=== PATIENT | male | born 1990 | race African-American/Black ===

== ENCOUNTER 2018-09-12 08:09 | Emergency (ER) | payer OTHER, MEDICAID ==
[~2018-09-12] VITALS: Ht 177.8 cm; Wt 90.0 kg
[~2018-09-12 08:09] MED LIST: BACL-141; CIPR-264; DIVA-18; EXTAVIA; SULF-165; TEMA7.5C6
[2018-09-12] MEDS ORDERED: KETOROLAC 60MG/2ML VIAL IM ONE (09:00)
[2018-09-12] MEDS ORDERED: DIAZEPAM 5 MG/ML 2ML CPJ IV ONE (09:00)
[2018-09-12] MEDS ORDERED: DIAZEPAM 5 MG TABLET PO ONE (11:00)
[2018-09-12 14:13] VITALS: BP 135/57
== END 2018-09-12 14:20 | disposition home or self-care (01) ==
LOC: ER 08:09
DX: G35 Multiple sclerosis (principal); Z99.3 Dependence on wheelchair; Z90.49 Acquired absence of other specified parts of digestive tract
CPT/HCPCS: 96372; 99283; J1885

== ENCOUNTER 2018-11-12 21:16 | Emergency (ER) | payer OTHER, MEDICAID ==
[~2018-11-12] VITALS: Ht 177.8 cm; Wt 82.0 kg
[2018-11-12] MEDS ORDERED: MORPHINE SULFATE 4 MG/ML CPJ (NOT FOR IM USE) IV STA (22:13)
[2018-11-12] MEDS ORDERED: METHYLPREDNISOLONE SOD SUCC 125 MG/2 ML VIAL IV STA (22:13)
[2018-11-12] MEDS ORDERED: ONDANSETRON HCL 4MG/2ML INJ IV STA (22:13)
[2018-11-12] MEDS ORDERED: SODIUM CHLORIDE 0.9% 1,000 ML IV ONE (22:13)
[2018-11-12 23:09] LABS: BASOPHILS % 0.7 % (0.0-2.0); HEMATOCRIT. 39.3 % (42.0-52.0); HEMOGLOBIN. 13.5 g/dL (14.0-18.0); LYMPHOCYTES % 28.7 % (20.0-50.0); MEAN CORPUSCULAR HEMOGLOBIN 31.4 pg (28.0-32.0); MEAN CORPUSCULAR VOLUME 91.2 fL (80.0-94.0); MEAN PLATELET VOLUME 8.5 fl (7.4-10.4); MONOCYTES % 8.4 % (2.0-8.0); NEUTROPHILS % 59.2 % (40.0-76.0); PLATELET 249 x1000/uL (130-400); RED BLOOD CELL COUNT 4.31 mill/uL (4.7-6.1); RED CELL DISTRIBUTION WIDTH 12.8 % (11.6-14.6)
[2018-11-12 23:14] LABS: CHLORIDE 113 mEq/L (98-107)
[2018-11-12 23:21] LABS: ETHANOL BLOOD < 10 mg/dL
[2018-11-12 23:46] LABS: *AMPHETAMINES SCREEN URINE NEGATIVE (NEGATIVE); *BARBITURATES SCREEN URINE NEGATIVE (NEGATIVE); *BENZODIAZEPINES SCREEN URINE NEGATIVE (NEGATIVE); *COCAINE SCREEN URINE NEGATIVE (NEGATIVE)
[2018-11-12 23:47] LABS: CANNABINOID URINE SCREEN NEGATIVE (NEGATIVE); METHADONE URINE SCREEN NEGATIVE (NEGATIVE); OPIATES URINE SCREEN PRESUMTIVE POSITIVE (NEGATIVE); PHENCYCLIDINE URINE SCREEN NEGATIVE (NEGATIVE)
[2018-11-13 02:44] VITALS: BP 116/60
== END 2018-11-13 02:50 | disposition short-term general hospital (02) ==
LOC: ER 21:35
DX: G35 Multiple sclerosis (principal); R53.1 Weakness; M54.9 Dorsalgia, unspecified; M79.606 Pain in leg, unspecified; F31.9 Bipolar disorder, unspecified; Z99.3 Dependence on wheelchair
CPT/HCPCS: 36415; 80053; 80305; 80320; 83880; 84484; 85025; 93005; 96374; 96375; 99285; J2270; J2405; J2930; J7030; G0480

== ENCOUNTER 2018-12-13 14:04 | Emergency (ER) | payer OTHER, MEDICAID ==
[~2018-12-13] VITALS: Ht 175.3 cm; Wt 110.0 kg
[2018-12-13] MEDS ORDERED: ACETAMINOPHEN 325MG TABLET PO ONE (15:45)
[2018-12-13] MEDS ORDERED: KETOROLAC 60MG/2ML VIAL IM ONE (15:45)
[2018-12-13] MEDS ORDERED: DEXAMETHASONE 2MG TABLET PO ONE (15:45)
[2018-12-13 18:16] VITALS: BP 140/65
== END 2018-12-13 19:11 | disposition home or self-care (01) ==
LOC: ER 14:04
DX: M54.5 Low back pain (principal); G89.29 Other chronic pain; G35 Multiple sclerosis; G83.89 Other specified paralytic syndromes; F31.9 Bipolar disorder, unspecified; Z99.3 Dependence on wheelchair
CPT/HCPCS: 96372; 99283; J1885; J8540

== ENCOUNTER 2018-12-15 14:54 | Emergency (ER) | payer OTHER, MEDICAID ==
[~2018-12-15] VITALS: Ht 177.8 cm; Wt 90.0 kg
[2018-12-15] MEDS: HYDROCODONE/ACETAMINOPHEN 5/325MG TABLET PO ONE ×2 (16:00→16:41)
[2018-12-15 17:30] VITALS: BP 118/72
== END 2018-12-15 18:57 | disposition home or self-care (01) ==
LOC: ER 14:54
DX: M54.5 Low back pain (principal); F31.9 Bipolar disorder, unspecified; Z79.899 Other long term (current) drug therapy
CPT/HCPCS: 72148; 99284

== ENCOUNTER 2018-12-17 02:06 | Emergency (ER) | payer OTHER, MEDICAID ==
[~2018-12-17] VITALS: Ht 182.9 cm; Wt 104.0 kg
[2018-12-17] MEDS ORDERED: KETOROLAC 60MG/2ML VIAL IM NR (03:35)
[2018-12-17] MEDS ORDERED: HYDROCODONE/ACETAMINOPHEN 5/325MG TABLET PO NR (03:35)
[2018-12-17 05:09] LABS: CLARITY URINE CLEAR (CLEAR); COLOR URINE YELLOW (YELLOW); KETONES URINE TRACE (NEGATIVE); LEUKOCYTE ESTERASE URINE NEGATIVE (NEGATIVE); NITRITE URINE NEGATIVE (NEGATIVE); OCCULT BLOOD URINE NEGATIVE (NEGATIVE); PROTEIN URINE NEGATIVE (NEGATIVE)
[2018-12-17 08:50] VITALS: BP 115/77
== END 2018-12-17 09:10 | disposition home or self-care (01) ==
LOC: ER 02:06
DX: M54.5 Low back pain (principal); G89.29 Other chronic pain; G35 Multiple sclerosis; F31.9 Bipolar disorder, unspecified; Z90.49 Acquired absence of other specified parts of digestive tract
CPT/HCPCS: 81003; 96372; 99283; J1885

== ENCOUNTER 2019-01-10 09:39 | Emergency (ER) | payer OTHER, MEDICAID ==
[~2019-01-10] VITALS: Ht 182.9 cm; Wt 140.0 kg
[2019-01-10] MEDS ORDERED: MORPHINE SULFATE 4 MG/ML CPJ (NOT FOR IM USE) IV STA (09:55)
[2019-01-10 11:36] LABS: BASOPHILS % 0.6 % (0.0-2.0); EOSINOPHILS % 2.6 % (0.0-5.0); HEMATOCRIT. 38.9 % (42.0-52.0); HEMOGLOBIN. 12.9 g/dL (14.0-18.0); LYMPHOCYTES % 18.3 % (20.0-50.0); MEAN CORPUSCULAR HEMOGLOBIN 30.7 pg (28.0-32.0); MEAN CORPUSCULAR VOLUME 92.2 fL (80.0-94.0); MEAN PLATELET VOLUME 9.1 fl (7.4-10.4); NEUTROPHILS % 65.5 % (40.0-76.0); PLATELET 203 x1000/uL (130-400); RED BLOOD CELL COUNT 4.22 mill/uL (4.7-6.1); RED CELL DISTRIBUTION WIDTH 13.4 % (11.6-14.6)
[2019-01-10 11:46] LABS: CHLORIDE 110 mEq/L (98-107)
[2019-01-10] MEDS ORDERED: MORPHINE SULFATE 4 MG/ML CPJ (NOT FOR IM USE) IV ONE (13:45)
[2019-01-10 16:15] VITALS: BP 113/59
== END 2019-01-10 16:30 | disposition short-term general hospital (02) ==
LOC: ER 09:39
DX: M54.5 Low back pain (principal); G35 Multiple sclerosis; G82.20 Paraplegia, unspecified; F31.9 Bipolar disorder, unspecified
CPT/HCPCS: 36415; 71045; 80053; 82962; 85025; 93005; 96374; 96376; 99285; J2270

== ENCOUNTER 2019-01-15 15:24 | Emergency (ER) | payer OTHER, MEDICAID ==
[~2019-01-15] VITALS: Ht 177.8 cm; Wt 104.0 kg
[2019-01-15] MEDS ORDERED: SODIUM CHLORIDE 0.9% 1,000 ML IV ONE (16:36)
[2019-01-15] MEDS ORDERED: MORPHINE SULFATE 4 MG/ML CPJ (NOT FOR IM USE) IV STA (16:36)
[2019-01-15] MEDS ORDERED: ONDANSETRON HCL 4MG/2ML INJ IV STA (16:36)
[2019-01-15] MEDS ORDERED: METHYLPREDNISOLONE SOD SUCC 125 MG/2 ML VIAL IV ONE (16:45)
[2019-01-15 16:50] LABS: CLARITY URINE CLEAR (CLEAR); COLOR URINE YELLOW (YELLOW); KETONES URINE TRACE (NEGATIVE); LEUKOCYTE ESTERASE URINE NEGATIVE (NEGATIVE); NITRITE URINE NEGATIVE (NEGATIVE); OCCULT BLOOD URINE NEGATIVE (NEGATIVE); PH URINE 6.5 (4.5-8.0); PROTEIN URINE NEGATIVE (NEGATIVE); SPECIFIC GRAVITY URINE 1.018 (1.005-1.030)
[2019-01-15 17:04] LABS: BASOPHILS % 0.8 % (0.0-2.0); EOSINOPHILS % 4.3 % (0.0-5.0); HEMATOCRIT. 37.6 % (42.0-52.0); HEMOGLOBIN. 12.6 g/dL (14.0-18.0); LYMPHOCYTES % 20.4 % (20.0-50.0); MEAN CORPUSCULAR HEMOGLOBIN 30.6 pg (28.0-32.0); MEAN CORPUSCULAR VOLUME 90.9 fL (80.0-94.0); MEAN PLATELET VOLUME 8.1 fl (7.4-10.4); MONOCYTES % 10.8 % (2.0-8.0); NEUTROPHILS % 63.7 % (40.0-76.0); PLATELET 287 x1000/uL (130-400); RED BLOOD CELL COUNT 4.13 mill/uL (4.7-6.1); RED CELL DISTRIBUTION WIDTH 13.3 % (11.6-14.6)
[2019-01-15 17:11] LABS: PROTHROMBIN TIME 10.7 sec (9.6-11.0)
[2019-01-15 17:12] LABS: CHLORIDE 109 mEq/L (98-107)
[2019-01-15 18:44] VITALS: BP 144/75
== END 2019-01-15 19:13 | disposition short-term general hospital (02) ==
LOC: ER 15:24 → CANBEDREQ 22:35
DX: G35 Multiple sclerosis (principal); M54.5 Low back pain; F31.9 Bipolar disorder, unspecified; Z90.411 Acquired partial absence of pancreas; Z87.821 Personal history of retained foreign body fully removed; Z87.19 Personal history of other diseases of the digestive system; Z79.899 Other long term (current) drug therapy
CPT/HCPCS: 36415; 80053; 81003; 85025; 85610; 96374; 96375; 99285; J2270; J2405; J2930; J7030

== ENCOUNTER 2019-01-21 16:07 | Emergency (ER) | payer OTHER, MEDICAID ==
[~2019-01-21] VITALS: Ht 177.8 cm; Wt 113.0 kg
[2019-01-21] MEDS ORDERED: FENTANYL CITRATE/PF 50MCG/ML 2ML VIAL IV ONE (17:00)
[2019-01-21 20:00] VITALS: BP 119/70
== END 2019-01-21 20:00 | disposition home or self-care (01) ==
LOC: ER 16:07
DX: G89.29 Other chronic pain (principal); M54.5 Low back pain; G35 Multiple sclerosis; F31.9 Bipolar disorder, unspecified; Z99.3 Dependence on wheelchair; Z87.19 Personal history of other diseases of the digestive system
CPT/HCPCS: 96374; 99283; J3010

== ENCOUNTER 2019-01-22 16:35 | Emergency (ER) | payer OTHER, MEDICAID ==
[~2019-01-22] VITALS: Ht 177.8 cm; Wt 113.0 kg
[2019-01-22] MEDS ORDERED: MORPHINE SULFATE 10 MG/ML CPJ IM ONE (19:15)
[2019-01-22] MEDS ORDERED: KETOROLAC 60MG/2ML VIAL IM ONE (19:15)
[2019-01-22] MEDS ORDERED: METHOCARBAMOL 750MG TABLET PO STA (19:53)
[2019-01-22] MEDS ORDERED: MORPHINE SULFATE 4 MG/ML CPJ (NOT FOR IM USE) IV ONE (20:00)
[2019-01-22] MEDS ORDERED: KETOROLAC 30MG/ML VIAL IV ONE (20:00)
[2019-01-22 20:23] LABS: BASOPHILS % 0.7 % (0.0-2.0); EOSINOPHILS % 3.4 % (0.0-5.0); HEMATOCRIT. 40.6 % (42.0-52.0); HEMOGLOBIN. 13.6 g/dL (14.0-18.0); LYMPHOCYTES % 24.8 % (20.0-50.0); MEAN CORPUSCULAR HEMOGLOBIN 30.6 pg (28.0-32.0); MEAN CORPUSCULAR VOLUME 91.4 fL (80.0-94.0); MEAN PLATELET VOLUME 8.1 fl (7.4-10.4); MONOCYTES % 11.5 % (2.0-8.0); NEUTROPHILS % 59.6 % (40.0-76.0); PLATELET 361 x1000/uL (130-400); RED BLOOD CELL COUNT 4.44 mill/uL (4.7-6.1); RED CELL DISTRIBUTION WIDTH 13.5 % (11.6-14.6)
[2019-01-22 20:24] LABS: CHLORIDE 110 mEq/L (98-107)
[2019-01-22 23:11] VITALS: BP 137/68
== END 2019-01-22 23:11 | disposition short-term general hospital (02) ==
LOC: ER 16:35
DX: G35 Multiple sclerosis (principal); M62.831 Muscle spasm of calf; F31.9 Bipolar disorder, unspecified; Z87.19 Personal history of other diseases of the digestive system
CPT/HCPCS: 36415; 71045; 80053; 83880; 84484; 85025; 93005; 96374; 96375; 99285; J1885; J2270

== ENCOUNTER 2019-01-28 08:33 | Emergency (ER) | payer OTHER, MEDICAID ==
[~2019-01-28] VITALS: Ht 182.9 cm; Wt 113.0 kg
[2019-01-28] MEDS ORDERED: MORPHINE SULFATE 4 MG/ML CPJ (NOT FOR IM USE) IV STA (08:47)
[2019-01-28 09:08] LABS: BASOPHILS % 1.1 % (0.0-2.0); HEMATOCRIT. 41.5 % (42.0-52.0); HEMOGLOBIN. 13.9 g/dL (14.0-18.0); LYMPHOCYTES % 23.9 % (20.0-50.0); MEAN CORPUSCULAR HEMOGLOBIN 30.4 pg (28.0-32.0); MEAN CORPUSCULAR VOLUME 90.9 fL (80.0-94.0); MEAN PLATELET VOLUME 8.6 fl (7.4-10.4); MONOCYTES % 11.5 % (2.0-8.0); NEUTROPHILS % 59.5 % (40.0-76.0); PLATELET 237 x1000/uL (130-400); RED BLOOD CELL COUNT 4.57 mill/uL (4.7-6.1); RED CELL DISTRIBUTION WIDTH 13.3 % (11.6-14.6)
[2019-01-28 09:21] LABS: CHLORIDE 107 mEq/L (98-107)
[2019-01-28] MEDS ORDERED: MORPHINE SULFATE 4 MG/ML CPJ (NOT FOR IM USE) IV ONE ×2 (10:00→11:45)
[2019-01-28 12:42] VITALS: BP 128/59
== END 2019-01-28 13:08 | disposition short-term general hospital (02) ==
LOC: ER 08:33 → ENRESERV 10:02 → CANRESERV 10:02 → CANBEDREQ 10:42 → ER 13:08
DX: G35 Multiple sclerosis (principal); F31.9 Bipolar disorder, unspecified; Z87.19 Personal history of other diseases of the digestive system; Z99.3 Dependence on wheelchair
CPT/HCPCS: 36415; 71045; 80053; 85025; 93005; 96374; 96376; 99285; J2270

== ENCOUNTER 2019-02-02 07:11 | Emergency (ER) | payer OTHER, MEDICAID ==
[~2019-02-02] VITALS: Ht 182.9 cm; Wt 100.0 kg
[2019-02-02] MEDS ORDERED: DIAZEPAM 5 MG TABLET PO ONE (09:00)
[2019-02-02 09:07] LABS: BASOPHILS % 0.6 % (0.0-2.0); EOSINOPHILS % 5.5 % (0.0-5.0); HEMOGLOBIN. 12.8 g/dL (14.0-18.0); LYMPHOCYTES % 20.9 % (20.0-50.0); MEAN CORPUSCULAR HEMOGLOBIN 29.8 pg (28.0-32.0); MEAN CORPUSCULAR VOLUME 90.9 fL (80.0-94.0); MEAN PLATELET VOLUME 9.1 fl (7.4-10.4); MONOCYTES % 10.6 % (2.0-8.0); NEUTROPHILS % 62.4 % (40.0-76.0); PLATELET 230 x1000/uL (130-400); RED BLOOD CELL COUNT 4.29 mill/uL (4.7-6.1); RED CELL DISTRIBUTION WIDTH 13.2 % (11.6-14.6)
[2019-02-02 09:08] LABS: CHLORIDE 113 mEq/L (98-107)
[2019-02-02 09:45] LABS: INR 1.1; PROTHROMBIN TIME 11.4 sec (9.6-11.0)
[2019-02-02 12:45] VITALS: BP 115/71
== END 2019-02-02 12:50 | disposition home or self-care (01) ==
LOC: ER 07:11
DX: G35 Multiple sclerosis (principal); F31.9 Bipolar disorder, unspecified; Z99.3 Dependence on wheelchair
CPT/HCPCS: 36415; 99283

== ENCOUNTER 2019-02-14 11:40 | Emergency (ER) | payer OTHER, MEDICAID ==
[~2019-02-14] VITALS: Ht 177.8 cm; Wt 104.0 kg
[2019-02-14] MEDS ORDERED: METHYLPREDNISOLONE SOD SUCC 125 MG/2 ML VIAL IV ONE (12:15)
[2019-02-14 12:50] LABS: BASOPHILS % 0.9 % (0.0-2.0); EOSINOPHILS % 2.3 % (0.0-5.0); HEMATOCRIT. 40.5 % (42.0-52.0); HEMOGLOBIN. 13.6 g/dL (14.0-18.0); LYMPHOCYTES % 16.4 % (20.0-50.0); MEAN CORPUSCULAR HEMOGLOBIN 30.1 pg (28.0-32.0); MEAN CORPUSCULAR VOLUME 89.5 fL (80.0-94.0); MEAN PLATELET VOLUME 9.1 fl (7.4-10.4); MONOCYTES % 9.6 % (2.0-8.0); NEUTROPHILS % 70.8 % (40.0-76.0); PLATELET 142 x1000/uL (130-400); RED BLOOD CELL COUNT 4.53 mill/uL (4.7-6.1); RED CELL DISTRIBUTION WIDTH 13.2 % (11.6-14.6)
[2019-02-14 12:57] LABS: CHLORIDE 112 mEq/L (98-107)
[2019-02-14 15:07] LABS: CLARITY URINE CLOUDY (CLEAR); COLOR URINE DARK YELLOW (YELLOW); KETONES URINE TRACE (NEGATIVE); LEUKOCYTE ESTERASE URINE NEGATIVE (NEGATIVE); NITRITE URINE NEGATIVE (NEGATIVE); OCCULT BLOOD URINE NEGATIVE (NEGATIVE); PH URINE 5.5 (4.5-8.0); PROTEIN URINE NEGATIVE (NEGATIVE); SPECIFIC GRAVITY URINE 1.034 (1.005-1.030)
[2019-02-14 15:35] VITALS: BP 111/60
== END 2019-02-14 15:54 | disposition short-term general hospital (02) ==
LOC: ER 11:40
DX: G35 Multiple sclerosis (principal); R32 Unspecified urinary incontinence; R15.9 Full incontinence of feces; F31.9 Bipolar disorder, unspecified; Z99.3 Dependence on wheelchair
CPT/HCPCS: 36415; 72148; 76857; 80048; 81003; 85025; 87086; 96374; 99285; J2930

== ENCOUNTER 2019-02-16 16:04 | Emergency (ER) | payer OTHER, MEDICAID ==
[~2019-02-16] VITALS: Ht 185.4 cm; Wt 109.0 kg
[2019-02-16] MEDS ORDERED: HYDROCODONE/ACETAMINOPHEN 5/325MG TABLET PO STA (16:26)
[2019-02-16] MEDS ORDERED: LIDOCAINE HCL 2% JELLY 5ML TOP ONE (16:30)
[2019-02-16 17:29] LABS: BASOPHILS % 0.6 % (0.0-2.0); EOSINOPHILS % 1.6 % (0.0-5.0); HEMATOCRIT. 37.7 % (42.0-52.0); HEMOGLOBIN. 12.6 g/dL (14.0-18.0); LYMPHOCYTES % 15.2 % (20.0-50.0); MEAN CORPUSCULAR VOLUME 90.2 fL (80.0-94.0); MEAN PLATELET VOLUME 8.9 fl (7.4-10.4); MONOCYTES % 10.2 % (2.0-8.0); NEUTROPHILS % 72.4 % (40.0-76.0); PLATELET 185 x1000/uL (130-400); RED BLOOD CELL COUNT 4.18 mill/uL (4.7-6.1); RED CELL DISTRIBUTION WIDTH 13.2 % (11.6-14.6)
[2019-02-16 17:35] LABS: CHLORIDE 109 mEq/L (98-107)
[2019-02-16 21:30] VITALS: BP 124/64
== END 2019-02-16 21:58 | disposition home or self-care (01) ==
LOC: ER 16:43
DX: T83.098A Other mechanical complication of other urinary catheter, initial encounter (principal); M79.605 Pain in left leg; G35 Multiple sclerosis; F31.9 Bipolar disorder, unspecified; Z90.49 Acquired absence of other specified parts of digestive tract; Y84.6 Urinary catheterization as the cause of abnormal reaction of the patient, or of later complication, without mention of misadventure at the time of the procedure; Y92.018 Other place in single-family (private) house as the place of occurrence of the external cause
CPT/HCPCS: 36415; 99283

== ENCOUNTER 2019-02-19 08:56 | Emergency (ER) | payer OTHER, MEDICAID ==
[~2019-02-19] VITALS: Ht 177.8 cm; Wt 100.0 kg
[2019-02-19 14:09] VITALS: BP 120/80
== END 2019-02-19 14:16 | disposition home or self-care (01) ==
LOC: ER 08:56
DX: T83.098A Other mechanical complication of other urinary catheter, initial encounter (principal); G35 Multiple sclerosis; R32 Unspecified urinary incontinence; G89.29 Other chronic pain; M54.40 Lumbago with sciatica, unspecified side; N31.9 Neuromuscular dysfunction of bladder, unspecified
CPT/HCPCS: 99283

== ENCOUNTER 2019-03-11 16:58 | Emergency (ER) | payer OTHER, MEDICAID ==
[~2019-03-11] VITALS: Ht 175.3 cm; Wt 100.0 kg
[2019-03-11] MEDS ORDERED: MORPHINE SULFATE 4 MG/ML CPJ (NOT FOR IM USE) IV ONE (17:30)
[2019-03-11 18:15] LABS: BASOPHILS % 0.7 % (0.0-2.0); EOSINOPHILS % 2.3 % (0.0-5.0); HEMOGLOBIN. 13.3 g/dL (14.0-18.0); LYMPHOCYTES % 23.3 % (20.0-50.0); MEAN CORPUSCULAR HEMOGLOBIN 29.2 pg (28.0-32.0); MEAN PLATELET VOLUME 9.2 fl (7.4-10.4); MONOCYTES % 10.3 % (2.0-8.0); NEUTROPHILS % 63.4 % (40.0-76.0); PLATELET 256 x1000/uL (130-400); RED BLOOD CELL COUNT 4.56 mill/uL (4.7-6.1); RED CELL DISTRIBUTION WIDTH 13.1 % (11.6-14.6)
[2019-03-11 18:19] LABS: CHLORIDE 114 mEq/L (98-107)
[2019-03-11 19:37] LABS: CLARITY URINE CLEAR (CLEAR); COLOR URINE YELLOW (YELLOW); KETONES URINE 1+ (NEGATIVE); LEUKOCYTE ESTERASE URINE TRACE (NEGATIVE); NITRITE URINE NEGATIVE (NEGATIVE); OCCULT BLOOD URINE NEGATIVE (NEGATIVE); PH URINE 7.5 (4.5-8.0); PROTEIN URINE NEGATIVE (NEGATIVE); SPECIFIC GRAVITY URINE 1.036 (1.005-1.030)
[2019-03-11 22:56] VITALS: BP 125/70
== END 2019-03-11 22:55 | disposition home or self-care (01) ==
LOC: ER 16:58
DX: M79.662 Pain in left lower leg (principal); G35 Multiple sclerosis; F31.9 Bipolar disorder, unspecified; Z90.49 Acquired absence of other specified parts of digestive tract
CPT/HCPCS: 36415; 80053; 81003; 85025; 96374; 99283; J2270

== ENCOUNTER 2019-04-27 14:54 | Emergency (ER) | payer OTHER, MEDICAID ==
[~2019-04-27] VITALS: Ht 182.9 cm; Wt 105.0 kg
[2019-04-27] MEDS ORDERED: MORPHINE SULFATE 4 MG/ML CPJ (NOT FOR IM USE) IV ONE (19:00)
[2019-04-27] MEDS ORDERED: METHYLPREDNISOLONE SOD SUCC 125 MG/2 ML VIAL IV ONE (19:00)
[2019-04-27 22:59] VITALS: BP 132/72
== END 2019-04-27 23:22 | disposition home or self-care (01) ==
LOC: ER 14:54
DX: G35 Multiple sclerosis (principal); G82.20 Paraplegia, unspecified; F31.9 Bipolar disorder, unspecified; Z90.49 Acquired absence of other specified parts of digestive tract; Z99.3 Dependence on wheelchair
CPT/HCPCS: 96374; 96375; 99283; J2270; J2930

== ENCOUNTER 2019-05-24 08:01 | Emergency (ER) | payer OTHER, MEDICAID ==
[~2019-05-24] VITALS: Ht 182.9 cm; Wt 109.0 kg
[2019-05-24] MEDS ORDERED: MORPHINE SULFATE 10 MG/ML CPJ IV ONE (08:45)
[2019-05-24] MEDS ORDERED: METHYLPREDNISOLONE SOD SUCC 125 MG/2 ML VIAL IV ONE (08:45)
[2019-05-24 13:03] VITALS: BP 141/74
== END 2019-05-24 12:58 | disposition home or self-care (01) ==
LOC: ER 08:01
DX: G35 Multiple sclerosis (principal); M54.5 Low back pain; Z90.49 Acquired absence of other specified parts of digestive tract; Z79.899 Other long term (current) drug therapy
CPT/HCPCS: 96374; 96375; 99283; J2270; J2930

== ENCOUNTER 2019-07-23 15:15 | Emergency (ER) | payer OTHER, MEDICAID ==
[~2019-07-23] VITALS: Ht 182.9 cm; Wt 110.0 kg
[2019-07-23 18:01] LABS: BASOPHILS % 0.9 % (0.0-2.0); EOSINOPHILS % 2.3 % (0.0-5.0); HEMATOCRIT. 43.7 % (42.0-52.0); MEAN CORPUSCULAR HEMOGLOBIN 30.6 pg (28.0-32.0); MEAN CORPUSCULAR VOLUME 89.2 fL (80.0-94.0); MEAN PLATELET VOLUME 8.6 fl (7.4-10.4); MONOCYTES % 9.7 % (2.0-8.0); NEUTROPHILS % 61.1 % (40.0-76.0); PLATELET 225 x1000/uL (130-400); RED BLOOD CELL COUNT 4.89 mill/uL (4.7-6.1); RED CELL DISTRIBUTION WIDTH 13.8 % (11.6-14.6)
[2019-07-23 18:07] LABS: CHLORIDE 105 mEq/L (98-107)
[2019-07-23] MEDS ORDERED: METHYLPREDNISOLONE SOD SUCC 125 MG/2 ML VIAL IV ONE (19:45)
[2019-07-23] MEDS ORDERED: SODIUM CHLORIDE 0.9% 1,000 ML IV ONE (19:46)
[2019-07-23] MEDS ORDERED: ACETAMINOPHEN 325MG TABLET PO STA (19:46)
[2019-07-23 22:23] LABS: CLARITY URINE CLEAR (CLEAR); COLOR URINE YELLOW (YELLOW); KETONES URINE NEGATIVE (NEGATIVE); LEUKOCYTE ESTERASE URINE NEGATIVE (NEGATIVE); NITRITE URINE NEGATIVE (NEGATIVE); OCCULT BLOOD URINE NEGATIVE (NEGATIVE); PH URINE 6.5 (4.5-8.0); PROTEIN URINE NEGATIVE (NEGATIVE)
[2019-07-23 22:40] VITALS: BP 127/72
== END 2019-07-23 23:02 | disposition short-term general hospital (02) ==
LOC: ER 15:15
DX: G35 Multiple sclerosis (principal); R53.1 Weakness; Z79.899 Other long term (current) drug therapy
CPT/HCPCS: 36415; 70551; 72141; 72146; 72148; 80053; 81003; 85025; 93005; 96374; 99285; J2930; J7030

== ENCOUNTER 2019-07-31 17:01 | Emergency (ER) | payer OTHER, MEDICAID ==
[~2019-07-31] VITALS: Ht 180.3 cm; Wt 100.0 kg
[2019-07-31] MEDS ORDERED: ONDANSETRON HCL 4MG/2ML INJ IV STA (19:49)
[2019-07-31] MEDS ORDERED: SODIUM CHLORIDE 0.9% 1,000 ML IV ONE (19:49)
[2019-07-31] MEDS ORDERED: MORPHINE SULFATE 4 MG/ML CPJ (NOT FOR IM USE) IV STA (19:49)
[2019-07-31] MEDS ORDERED: METHYLPREDNISOLONE SOD SUCC 500 MG in DEXT 5% WATER 100 ML IV ONE (20:00)
[2019-07-31 20:31] LABS: BASOPHILS % 0.8 % (0.0-2.0); EOSINOPHILS % 2.6 % (0.0-5.0); HEMATOCRIT. 43.7 % (42.0-52.0); HEMOGLOBIN. 14.7 g/dL (14.0-18.0); LYMPHOCYTES % 32.3 % (20.0-50.0); MEAN CORPUSCULAR HEMOGLOBIN 30.3 pg (28.0-32.0); MEAN CORPUSCULAR VOLUME 89.8 fL (80.0-94.0); MEAN PLATELET VOLUME 8.7 fl (7.4-10.4); NEUTROPHILS % 54.3 % (40.0-76.0); PLATELET 239 x1000/uL (130-400); RED BLOOD CELL COUNT 4.86 mill/uL (4.7-6.1); RED CELL DISTRIBUTION WIDTH 13.8 % (11.6-14.6)
[2019-07-31 20:39] LABS: CHLORIDE 108 mEq/L (98-107)
[2019-08-01 01:30] VITALS: BP 133/61
== END 2019-08-01 04:39 | disposition home or self-care (01) ==
LOC: ER 17:01
DX: G35 Multiple sclerosis (principal); G89.29 Other chronic pain; M54.5 Low back pain; M41.9 Scoliosis, unspecified; F31.9 Bipolar disorder, unspecified; Z99.3 Dependence on wheelchair
CPT/HCPCS: 36415; 80053; 83605; 85025; 96365; 96375; 99285; J2270; J2405; J2930; J7030; J7060

== ENCOUNTER 2019-08-07 20:43 | Emergency (ER) | payer OTHER, MEDICAID ==
[~2019-08-07] VITALS: Ht 177.8 cm; Wt 106.0 kg
[2019-08-07] MEDS ORDERED: KETOROLAC 30MG/ML VIAL IV ONE (23:15)
[2019-08-07] MEDS ORDERED: MORPHINE SULFATE 4 MG/ML CPJ (NOT FOR IM USE) IV ONE (23:15)
[2019-08-08 05:00] VITALS: BP 127/66
== END 2019-08-08 05:18 | disposition home or self-care (01) ==
LOC: ER 20:43
DX: G35 Multiple sclerosis (principal); F31.9 Bipolar disorder, unspecified
CPT/HCPCS: 96374; 96375; 99285; J1885; J2270

== ENCOUNTER 2019-12-07 15:27 | Emergency (ER) | payer OTHER, MEDICAID ==
[~2019-12-07] VITALS: Ht 182.9 cm; Wt 118.0 kg
[2019-12-07] MEDS ORDERED: SODIUM CHLORIDE 0.9% 1,000 ML IV ONE (15:48)
[2019-12-07] MEDS ORDERED: ONDANSETRON HCL 4MG/2ML INJ IV STA (15:48)
[2019-12-07] MEDS ORDERED: MORPHINE SULFATE 4 MG/ML CPJ (NOT FOR IM USE) IV STA (15:48)
[2019-12-07 16:32] LABS: BASOPHILS % 0.5 % (0.0-2.0); HEMATOCRIT. 42.8 % (42.0-52.0); HEMOGLOBIN. 14.7 g/dL (14.0-18.0); LYMPHOCYTES % 25.5 % (20.0-50.0); MEAN CORPUSCULAR HEMOGLOBIN 31.4 pg (28.0-32.0); MEAN CORPUSCULAR VOLUME 91.3 fL (80.0-94.0); MONOCYTES % 9.7 % (2.0-8.0); NEUTROPHILS % 63.3 % (40.0-76.0); PLATELET 215 x1000/uL (130-400); RED BLOOD CELL COUNT 4.69 mill/uL (4.7-6.1); RED CELL DISTRIBUTION WIDTH 12.6 % (11.6-14.6)
[2019-12-07 16:44] LABS: INR 1.1; PROTHROMBIN TIME 11.4 sec (9.6-11.0)
[2019-12-07 16:46] LABS: CHLORIDE 107 mEq/L (98-107)
[2019-12-07 18:13] LABS: CLARITY URINE CLEAR (CLEAR); COLOR URINE YELLOW (YELLOW); KETONES URINE TRACE (NEGATIVE); LEUKOCYTE ESTERASE URINE NEGATIVE (NEGATIVE); NITRITE URINE NEGATIVE (NEGATIVE); OCCULT BLOOD URINE NEGATIVE (NEGATIVE); PH URINE 5.5 (4.5-8.0); PROTEIN URINE NEGATIVE (NEGATIVE); SPECIFIC GRAVITY URINE 1.032 (1.005-1.030)
[2019-12-07 19:44] VITALS: BP 110/67
== END 2019-12-07 19:54 | disposition short-term general hospital (02) ==
LOC: ER 15:27 → EDBEDREQTM 16:46 → ER 19:54 → CANBEDREQ 20:43
DX: G35 Multiple sclerosis (principal); F31.9 Bipolar disorder, unspecified
CPT/HCPCS: 36415; 72141; 72146; 72148; 80053; 81003; 83690; 85025; 85610; 96374; 96375; 99285; J2270; J2405; J7030

== ENCOUNTER 2019-12-13 19:35 | Emergency (ER) | payer OTHER, MEDICAID ==
[~2019-12-13] VITALS: Ht 182.9 cm; Wt 109.0 kg
[2019-12-13 20:32] LABS: CHLORIDE 105 mEq/L (98-107)
[2019-12-13 20:33] LABS: BASOPHILS % 0.3 % (0.0-2.0); EOSINOPHILS % 0.1 % (0.0-5.0); HEMATOCRIT. 42.9 % (42.0-52.0); HEMOGLOBIN. 14.5 g/dL (14.0-18.0); LYMPHOCYTES % 13.4 % (20.0-50.0); MEAN CORPUSCULAR HEMOGLOBIN 31.2 pg (28.0-32.0); MEAN CORPUSCULAR VOLUME 92.4 fL (80.0-94.0); MEAN PLATELET VOLUME 8.9 fl (7.4-10.4); MONOCYTES % 8.8 % (2.0-8.0); NEUTROPHILS % 77.4 % (40.0-76.0); PLATELET 235 x1000/uL (130-400); RED BLOOD CELL COUNT 4.64 mill/uL (4.7-6.1); RED CELL DISTRIBUTION WIDTH 13.1 % (11.6-14.6)
[2019-12-13 20:36] LABS: ETHANOL BLOOD < 10 mg/dL
[2019-12-13 21:05] LABS: CLARITY URINE CLEAR (CLEAR); COLOR URINE YELLOW (YELLOW); KETONES URINE TRACE (NEGATIVE); LEUKOCYTE ESTERASE URINE NEGATIVE (NEGATIVE); NITRITE URINE NEGATIVE (NEGATIVE); OCCULT BLOOD URINE NEGATIVE (NEGATIVE); PH URINE 8.5 (4.5-8.0); PROTEIN URINE NEGATIVE (NEGATIVE); SPECIFIC GRAVITY URINE 1.022 (1.005-1.030)
[2019-12-13 21:22] LABS: *AMPHETAMINES SCREEN URINE NEGATIVE (NEGATIVE); *BARBITURATES SCREEN URINE NEGATIVE (NEGATIVE); *BENZODIAZEPINES SCREEN URINE NEGATIVE (NEGATIVE); *COCAINE SCREEN URINE NEGATIVE (NEGATIVE); METHADONE URINE SCREEN NEGATIVE (NEGATIVE); OPIATES URINE SCREEN PRESUMTIVE POSITIVE (NEGATIVE); PHENCYCLIDINE URINE SCREEN NEGATIVE (NEGATIVE)
[2019-12-13 21:23] LABS: CANNABINOID URINE SCREEN NEGATIVE (NEGATIVE)
[2019-12-13] MEDS ORDERED: MORPHINE SULFATE 4 MG/ML CPJ (NOT FOR IM USE) IV ONE (22:15)
[2019-12-14 00:11] VITALS: BP 108/64
== END 2019-12-14 00:15 | disposition short-term general hospital (02) ==
LOC: ER 19:35
DX: M54.5 Low back pain (principal); M47.9 Spondylosis, unspecified; G35 Multiple sclerosis; F31.9 Bipolar disorder, unspecified
CPT/HCPCS: 36415; 80053; 80305; 80320; 81003; 85025; 96374; 99285; J2270; G0480

== ENCOUNTER 2019-12-20 21:46 | Emergency (ER) | payer OTHER, MEDICAID ==
[~2019-12-20] VITALS: Ht 175.3 cm; Wt 109.0 kg
[2019-12-20] MEDS ORDERED: MORPHINE SULFATE 4 MG/ML CPJ (NOT FOR IM USE) IV STA (23:09)
[2019-12-21 00:09] LABS: BASOPHILS % 0.5 % (0.0-2.0); EOSINOPHILS % 1.1 % (0.0-5.0); HEMATOCRIT. 42.3 % (42.0-52.0); HEMOGLOBIN. 14.1 g/dL (14.0-18.0); LYMPHOCYTES % 22.5 % (20.0-50.0); MEAN CORPUSCULAR HEMOGLOBIN 30.9 pg (28.0-32.0); MEAN CORPUSCULAR VOLUME 92.6 fL (80.0-94.0); NEUTROPHILS % 61.9 % (40.0-76.0); PLATELET 200 x1000/uL (130-400); RED BLOOD CELL COUNT 4.57 mill/uL (4.7-6.1); RED CELL DISTRIBUTION WIDTH 13.4 % (11.6-14.6)
[2019-12-21 00:12] LABS: CHLORIDE 107 mEq/L (98-107)
[2019-12-21 00:24] LABS: CLARITY URINE CLEAR (CLEAR); COLOR URINE YELLOW (YELLOW); KETONES URINE TRACE (NEGATIVE); LEUKOCYTE ESTERASE URINE NEGATIVE (NEGATIVE); NITRITE URINE NEGATIVE (NEGATIVE); OCCULT BLOOD URINE NEGATIVE (NEGATIVE); PROTEIN URINE NEGATIVE (NEGATIVE); SPECIFIC GRAVITY URINE 1.024 (1.005-1.030)
[2019-12-21] MEDS ORDERED: MORPHINE SULFATE 4 MG/ML CPJ (NOT FOR IM USE) IV ONE (02:45)
[2019-12-21 05:37] VITALS: BP 119/65
== END 2019-12-21 05:39 | disposition home or self-care (01) ==
LOC: ER 21:46
DX: M54.16 Radiculopathy, lumbar region (principal); G35 Multiple sclerosis; F31.9 Bipolar disorder, unspecified
CPT/HCPCS: 36415; 80048; 81003; 85025; 96374; 96376; 99285; J2270

== ENCOUNTER 2019-12-24 21:07 | Emergency (ER) | payer OTHER, MEDICAID ==
[~2019-12-24] VITALS: Ht 185.4 cm; Wt 96.0 kg
[2019-12-24] MEDS ORDERED: MORPHINE SULFATE 4 MG/ML CPJ (NOT FOR IM USE) IV STA (22:36)
[2019-12-24] MEDS ORDERED: ONDANSETRON HCL 4MG/2ML INJ IV STA (22:36)
[2019-12-24] MEDS ORDERED: SODIUM CHLORIDE 0.9% 1,000 ML IV ONE (22:36)
[2019-12-25 00:07] LABS: BASOPHILS % 0.5 % (0.0-2.0); HEMATOCRIT. 39.8 % (42.0-52.0); HEMOGLOBIN. 13.4 g/dL (14.0-18.0); LYMPHOCYTES % 17.8 % (20.0-50.0); MEAN CORPUSCULAR HEMOGLOBIN 31.1 pg (28.0-32.0); MEAN CORPUSCULAR VOLUME 92.4 fL (80.0-94.0); MEAN PLATELET VOLUME 8.9 fl (7.4-10.4); MONOCYTES % 11.5 % (2.0-8.0); NEUTROPHILS % 69.2 % (40.0-76.0); PLATELET 203 x1000/uL (130-400); RED CELL DISTRIBUTION WIDTH 13.1 % (11.6-14.6)
[2019-12-25 00:14] LABS: CHLORIDE 114 mEq/L (98-107)
[2019-12-25 00:40] LABS: CLARITY URINE CLEAR (CLEAR); COLOR URINE YELLOW (YELLOW); KETONES URINE TRACE (NEGATIVE); LEUKOCYTE ESTERASE URINE NEGATIVE (NEGATIVE); NITRITE URINE NEGATIVE (NEGATIVE); OCCULT BLOOD URINE NEGATIVE (NEGATIVE); PH URINE 7.5 (4.5-8.0); PROTEIN URINE NEGATIVE (NEGATIVE); SPECIFIC GRAVITY URINE 1.029 (1.005-1.030)
[2019-12-25 05:00] VITALS: BP 109/53
== END 2019-12-25 06:33 | disposition home or self-care (01) ==
LOC: ER 21:07
DX: M54.5 Low back pain (principal); G89.29 Other chronic pain; G35 Multiple sclerosis; F31.9 Bipolar disorder, unspecified
CPT/HCPCS: 36415; 71045; 80053; 81003; 83605; 85025; 96374; 96375; 99285; J2270; J2405; J7030

== ENCOUNTER 2019-12-31 19:33 | Emergency (ER) | payer OTHER, MEDICAID ==
[~2019-12-31] VITALS: Ht 182.9 cm; Wt 105.0 kg
[2019-12-31 21:21] LABS: BASOPHILS % 1.1 % (0.0-2.0); HEMATOCRIT. 42.8 % (42.0-52.0); HEMOGLOBIN. 14.6 g/dL (14.0-18.0); MEAN CORPUSCULAR HEMOGLOBIN 31.1 pg (28.0-32.0); MONOCYTES % 9.7 % (2.0-8.0); NEUTROPHILS % 55.2 % (40.0-76.0); PLATELET 247 x1000/uL (130-400); RED BLOOD CELL COUNT 4.71 mill/uL (4.7-6.1); RED CELL DISTRIBUTION WIDTH 13.3 % (11.6-14.6)
[2019-12-31 21:23] LABS: CHLORIDE 108 mEq/L (98-107)
[2019-12-31 21:29] LABS: INR 1.1; PROTHROMBIN TIME 11.4 sec (9.6-11.0)
[2019-12-31] MEDS ORDERED: MORPHINE SULFATE 4 MG/ML CPJ (NOT FOR IM USE) IV STA (22:29)
[2019-12-31 23:19] LABS: CLARITY URINE CLEAR (CLEAR); COLOR URINE YELLOW (YELLOW); KETONES URINE TRACE (NEGATIVE); LEUKOCYTE ESTERASE URINE NEGATIVE (NEGATIVE); NITRITE URINE NEGATIVE (NEGATIVE); OCCULT BLOOD URINE NEGATIVE (NEGATIVE); PROTEIN URINE NEGATIVE (NEGATIVE); SPECIFIC GRAVITY URINE 1.033 (1.005-1.030)
[2020-01-01 01:05] VITALS: BP 117/84
== END 2020-01-01 01:05 | disposition short-term general hospital (02) ==
LOC: ER 19:33 → CANBEDREQ 01-01 02:51
DX: M62.81 Muscle weakness (generalized) (principal); G35 Multiple sclerosis; M47.896 Other spondylosis, lumbar region; M54.5 Low back pain; F31.9 Bipolar disorder, unspecified; Z75.1 Person awaiting admission to adequate facility elsewhere
CPT/HCPCS: 36415; 72100; 80053; 81003; 85025; 85610; 96374; 99285; J2270

== ENCOUNTER 2020-01-04 16:30 | Emergency (ER) | payer OTHER, MEDICAID ==
[~2020-01-04] VITALS: Ht 188 cm; Wt 105.0 kg
[2020-01-04] MEDS ORDERED: MORPHINE SULFATE 10 MG/ML CPJ IM ONE (17:15)
[2020-01-04 18:49] VITALS: BP 111/58
== END 2020-01-04 19:00 | disposition home or self-care (01) ==
LOC: ER 16:30
DX: M54.5 Low back pain (principal); G35 Multiple sclerosis; F31.9 Bipolar disorder, unspecified; Z74.01 Bed confinement status
CPT/HCPCS: 93005; 96372; 99283; J2270

== ENCOUNTER 2020-01-06 19:35 | Emergency (ER) | payer OTHER, MEDICAID ==
[~2020-01-06] VITALS: Ht 175.3 cm; Wt 105.0 kg
[2020-01-06] MEDS ORDERED: ACETAMINOPHEN 325MG TABLET PO ONE (20:45)
[2020-01-06 22:01] VITALS: BP 130/70
== END 2020-01-06 22:03 | disposition home or self-care (01) ==
LOC: ER 19:35
DX: M54.5 Low back pain (principal); G89.29 Other chronic pain; G35 Multiple sclerosis; F31.9 Bipolar disorder, unspecified; Z74.01 Bed confinement status
CPT/HCPCS: 99283

== ENCOUNTER 2020-04-24 16:25 | Emergency (ER) | payer OTHER, MEDICAID ==
[~2020-04-24] VITALS: Ht 180.3 cm; Wt 86.0 kg
[2020-04-24] MEDS ORDERED: MORPHINE SULFATE 4 MG/ML CPJ (NOT FOR IM USE) IV STA (16:41)
[2020-04-24] MEDS ORDERED: ACETAMINOPHEN 325MG TABLET PO STA (16:41)
[2020-04-24 17:03] LABS: BASOPHILS % 0.6 % (0.0-2.0); EOSINOPHILS % 2.7 % (0.0-5.0); HEMATOCRIT. 46.7 % (42.0-52.0); HEMOGLOBIN. 15.6 g/dL (14.0-18.0); LYMPHOCYTES % 34.9 % (20.0-50.0); MEAN CORPUSCULAR HEMOGLOBIN 30.4 pg (28.0-32.0); MEAN CORPUSCULAR VOLUME 90.7 fL (80.0-94.0); MEAN PLATELET VOLUME 8.9 fl (7.4-10.4); MONOCYTES % 7.9 % (2.0-8.0); NEUTROPHILS % 53.9 % (40.0-76.0); PLATELET 235 x1000/uL (130-400); RED BLOOD CELL COUNT 5.15 mill/uL (4.7-6.1); RED CELL DISTRIBUTION WIDTH 12.9 % (11.6-14.6)
[2020-04-24 17:06] LABS: CHLORIDE 109 mEq/L (98-107)
[2020-04-24] MEDS ORDERED: OXYCODONE HCL/ACETAMINOPHEN 5/325MG TABLET PO ONE (18:45)
[2020-04-24 18:52] LABS: CLARITY URINE CLEAR (CLEAR); COLOR URINE YELLOW (YELLOW); KETONES URINE 1+ (NEGATIVE); LEUKOCYTE ESTERASE URINE NEGATIVE (NEGATIVE); NITRITE URINE NEGATIVE (NEGATIVE); OCCULT BLOOD URINE NEGATIVE (NEGATIVE); PH URINE 5.5 (4.5-8.0); PROTEIN URINE NEGATIVE (NEGATIVE); SPECIFIC GRAVITY URINE 1.027 (1.005-1.030)
[2020-04-24 19:40] VITALS: BP 116/76
== END 2020-04-24 20:00 | disposition home or self-care (01) ==
LOC: ER 16:25
DX: G89.29 Other chronic pain (principal); M54.9 Dorsalgia, unspecified; Z79.899 Other long term (current) drug therapy; Z98.890 Other specified postprocedural states
CPT/HCPCS: 36415; 80053; 81003; 85025; 96374; 99283; J2270

== ENCOUNTER 2022-05-19 14:50 | Inpatient (IN) | payer OTHER, MEDICAID ==
[~2022-05-19] VITALS: Ht 182.9 cm; Wt 94.8 kg
[2022-05-19] MEDS ORDERED: METHYLPREDNISOLONE SOD 1,000 MG in DEXT 5% WATER 100 ML IV NR (17:00)
[2022-05-19] MEDS ORDERED: METHYLPREDNISOLONE SOD SUCC 125 MG/2 ML VIAL IV ONE (17:00)
[2022-05-19 18:14] LABS: BASOPHILS % 0.6 % (0.0-2.0); EOSINOPHILS % 1.4 % (0.0-5.0); HEMOGLOBIN. 14.7 g/dL (14.0-18.0); LYMPHOCYTES % 31.7 % (20.0-50.0); MEAN CORPUSCULAR HEMOGLOBIN 30.6 pg (28.0-32.0); MEAN CORPUSCULAR VOLUME 91.5 fL (80.0-94.0); MEAN PLATELET VOLUME 8.6 fl (7.4-10.4); MONOCYTES % 7.1 % (2.0-8.0); NEUTROPHILS % 59.2 % (40.0-76.0); PLATELET 249 x1000/uL (130-400); RED BLOOD CELL COUNT 4.81 mill/uL (4.7-6.1); RED CELL DISTRIBUTION WIDTH 12.9 % (11.6-14.6)
[2022-05-19 18:22] LABS: CHLORIDE 107 mEq/L (98-107)
[2022-05-19] MEDS ORDERED: GUAIFENESIN 200MG/10ML SUGAR FREE UDC PO PRN (20:30)
[2022-05-19] MEDS ORDERED: ACETAMINOPHEN 325MG TABLET PO PRN ×2 (20:30)
[2022-05-19] MEDS ORDERED: ENOXAPARIN 40MG/0.4ML SYR SUBCUT SCH (20:30)
[2022-05-19] MEDS ORDERED: ONDANSETRON HCL 4MG/2ML INJ IV PRN (20:30)
[2022-05-19] MEDS ORDERED: MAGNESIUM/ALUMINUM HYDROXIDE/SIMETHICONE 30ML UDC PO PRN (20:30)
[2022-05-19] MEDS ORDERED: CLONIDINE 0.1MG TABLET PO PRN (20:30)
[2022-05-19] MEDS ORDERED: DOCUSATE SODIUM 100MG CAPSULE PO PRN (20:30)
[2022-05-19] MEDS ORDERED: IPRATROPIUM/ALBUTEROL 0.5-3(2.5)MG/3ML NEB HHN PRN (20:30)
[2022-05-19] MEDS: ENOXAPARIN 30MG/0.3ML SYR SUBCUT SCH (21:13)
[2022-05-19] MEDS: HYDROCODONE/ACETAMINOPHEN 5/325MG TABLET PO PRN (21:13)
[2022-05-20 00:13] LABS: CLARITY URINE CLEAR (CLEAR); COLOR URINE YELLOW (YELLOW); KETONES URINE 1+ (NEGATIVE); LEUKOCYTE ESTERASE URINE NEGATIVE (NEGATIVE); NITRITE URINE NEGATIVE (NEGATIVE); OCCULT BLOOD URINE NEGATIVE (NEGATIVE); PH URINE 6.5 (4.5-8.0); PROTEIN URINE NEGATIVE (NEGATIVE); SPECIFIC GRAVITY URINE 1.029 (1.005-1.030)
[2022-05-20 00:26] LABS: *AMPHETAMINES SCREEN URINE NEGATIVE (NEGATIVE); *BARBITURATES SCREEN URINE NEGATIVE (NEGATIVE); *BENZODIAZEPINES SCREEN URINE NEGATIVE (NEGATIVE); *COCAINE SCREEN URINE NEGATIVE (NEGATIVE); CANNABINOID URINE SCREEN PRESUMTIVE POSITIVE (NEGATIVE); METHADONE URINE SCREEN NEGATIVE (NEGATIVE); OPIATES URINE SCREEN PRESUMTIVE POSITIVE (NEGATIVE); PHENCYCLIDINE URINE SCREEN NEGATIVE (NEGATIVE)
[2022-05-20] MEDS ORDERED: ARIP30TA17 PO (04:29)
[2022-05-20] MEDS ORDERED: DIVA-73 PO (04:29)
[2022-05-20] MEDS ORDERED: BACLOFEN 10MG TABLET PO PRN (04:30)
[2022-05-20 06:08] LABS: BASOPHILS % 0.1 % (0.0-2.0); HEMATOCRIT. 49.4 % (42.0-52.0); HEMOGLOBIN. 16.3 g/dL (14.0-18.0); LYMPHOCYTES % 13.3 % (20.0-50.0); MEAN CORPUSCULAR HEMOGLOBIN 30.8 pg (28.0-32.0); MEAN CORPUSCULAR VOLUME 93.1 fL (80.0-94.0); MONOCYTES % 0.5 % (2.0-8.0); NEUTROPHILS % 86.1 % (40.0-76.0); PLATELET 266 x1000/uL (130-400); RED BLOOD CELL COUNT 5.31 mill/uL (4.7-6.1)
[2022-05-20 06:15] LABS: CHLORIDE 102 mEq/L (98-107)
[2022-05-20 06:30] LABS: HDL CHOLESTEROL 45 mg/dL (40-59); LDL CHOLESTEROL 187 mg/dL (5-100); T4 FREE 0.88 ng/dL (0.76-1.46)
[2022-05-20] MEDS ORDERED: METHYLPREDNISOLONE SOD SUCC 125 MG/2 ML VIAL IV SCH (09:00)
[2022-05-20] MEDS: DIVALPROEX SODIUM 250MG DR TABLET PO SCH ×3 (09:20→18:33)
[2022-05-20] MEDS: PANTOPRAZOLE SODIUM 40 MG/VIAL IV SCH (09:20)
[2022-05-20] MEDS: ENOXAPARIN 30MG/0.3ML SYR SUBCUT SCH ×2 (09:20→22:36)
[2022-05-20] MEDS: ARIPIPRAZOLE 5MG TABLET PO SCH (09:20)
[2022-05-20] MEDS ORDERED: NALOXONE HCL 0.4MG/ML VIAL IV PRN (10:30)
[2022-05-20] MEDS: HYDROMORPHONE HCL/PF 2MG/ML CPJ IV PRN ×2 (11:07→18:10)
[2022-05-20] MEDS: METHYLPREDNISOLONE SOD 1,000 MG in DEXT 5% WATER 100 ML IV SCH (18:10)
[2022-05-20 23:00] VITALS: BP 118/82
[2022-05-20] MEDS: BACLOFEN 10MG TABLET PO SCH (23:06)
[2022-05-20] MEDS: HYDROCODONE/ACETAMINOPHEN 5/325MG TABLET PO PRN (23:07)
[2022-05-21] VITALS: BP 119/66
[2022-05-21 04:00] VITALS: BP 110/65
[2022-05-21] MEDS: HYDROMORPHONE HCL/PF 2MG/ML CPJ IV PRN (05:46)
[2022-05-21 08:00] VITALS: BP 95/62
[2022-05-21] MEDS: HYDROCODONE/ACETAMINOPHEN 5/325MG TABLET PO PRN ×4 (08:21→21:26)
[2022-05-21] MEDS: DIVALPROEX SODIUM 250MG DR TABLET PO SCH ×3 (08:21→17:45)
[2022-05-21] MEDS: ARIPIPRAZOLE 5MG TABLET PO SCH (08:21)
[2022-05-21] MEDS: BACLOFEN 10MG TABLET PO SCH ×4 (08:21→21:26)
[2022-05-21] MEDS: PANTOPRAZOLE SODIUM 40 MG/VIAL IV SCH (08:22)
[2022-05-21] MEDS: ENOXAPARIN 30MG/0.3ML SYR SUBCUT SCH (08:23)
[2022-05-21 12:00] VITALS: BP 118/52
[2022-05-21 15:59] VITALS: BP 112/56
[2022-05-21] MEDS: METHYLPREDNISOLONE SOD 1,000 MG in DEXT 5% WATER 100 ML IV SCH (18:48)
[2022-05-21 20:00] VITALS: BP 105/51
[2022-05-22] VITALS: BP 111/56
[2022-05-22 04:00] VITALS: BP 132/73
[2022-05-22 08:00] VITALS: BP 128/74
[2022-05-22] MEDS: DIVALPROEX SODIUM 250MG DR TABLET PO SCH ×3 (10:07→17:59)
[2022-05-22] MEDS: FAMOTIDINE 20MG TABLET PO SCH ×2 (10:09→20:55)
[2022-05-22] MEDS: BACLOFEN 10MG TABLET PO SCH ×4 (10:09→20:55)
[2022-05-22] MEDS: HYDROCODONE/ACETAMINOPHEN 5/325MG TABLET PO PRN ×2 (10:09→17:58)
[2022-05-22] MEDS: ARIPIPRAZOLE 5MG TABLET PO SCH (10:09)
[2022-05-22] MEDS: ENOXAPARIN 40MG/0.4ML SYR SUBCUT SCH (10:10)
[2022-05-22 12:00] VITALS: BP 118/53
[2022-05-22] MEDS: HYDROMORPHONE HCL/PF 2MG/ML CPJ IV PRN ×2 (13:27→20:56)
[2022-05-22 16:00] VITALS: BP 136/63
[2022-05-22] MEDS: METHYLPREDNISOLONE SOD 1,000 MG in DEXT 5% WATER 100 ML IV SCH (18:00)
[2022-05-22 20:00] VITALS: BP 129/66
[2022-05-23] VITALS: BP 117/48
[2022-05-23 04:00] VITALS: BP 115/61
[2022-05-23 08:00] VITALS: BP 105/59
[2022-05-23] MEDS: FAMOTIDINE 20MG TABLET PO SCH (09:42)
[2022-05-23] MEDS: BACLOFEN 10MG TABLET PO SCH ×3 (09:42→17:33)
[2022-05-23] MEDS: ARIPIPRAZOLE 5MG TABLET PO SCH (09:42)
[2022-05-23] MEDS: DIVALPROEX SODIUM 250MG DR TABLET PO SCH ×3 (09:42→17:33)
[2022-05-23] MEDS: ENOXAPARIN 40MG/0.4ML SYR SUBCUT SCH (09:43)
[2022-05-23 12:00] VITALS: BP_SYST 113; BP_SYST 128; BP_DIAS 60; BP_DIAS 62
[2022-05-23 15:50] VITALS: BP 113/62
[2022-05-23] MEDS: METHYLPREDNISOLONE SOD 1,000 MG in DEXT 5% WATER 100 ML IV SCH (17:33)
[2022-05-23 20:00] VITALS: BP 107/41
== END 2022-05-23 20:20 | disposition home health service (06) | DRG 59 ==
LOC: ER 14:50 → MICUSO 18:58 → EDBEDREQ 19:00 → EDBEDREQTM 19:00 → 6EST 05-20 22:05
PROVIDERS: ADMIT Hospitalist; ATTEND Hospitalist
DX: G35 Multiple sclerosis (principal); E44.1 Mild protein-calorie malnutrition; G83.4 Cauda equina syndrome; F31.9 Bipolar disorder, unspecified; E11.65 Type 2 diabetes mellitus with hyperglycemia; L60.0 Ingrowing nail; M25.78 Osteophyte, vertebrae; M47.9 Spondylosis, unspecified; Z99.3 Dependence on wheelchair; Z68.28 Body mass index [BMI] 28.0-28.9, adult
CPT/HCPCS: 36415; 70553; 71045; 72141; 72142; 72146; 72147; 72148; 80053; 80061; 80305; 81003; 83735; 84100; 84439; 84443; 85025; 85651; 97162; 97166; 99285; C9113; J1170; J1650; J2930; J7060

== ENCOUNTER 2023-02-04 06:02 | Emergency (ER) | payer OTHER ==
[~2023-02-04] VITALS: Ht 182.9 cm; Wt 109.0 kg
[~2023-02-04 06:02] MED LIST changes: +ARIP30TA17 PO; -CIPR-264; -DIVA-18; +DIVA-73 PO; -EXTAVIA; -SULF-165; -TEMA7.5C6
[2023-02-04 06:11] VITALS: O2SAT 97
[2023-02-04 07:08] LABS: BASOPHILS % 0.6 % (0.0-2.0); EOSINOPHILS % 2.1 % (0.0-5.0); HEMATOCRIT. 45.4 % (42.0-52.0); HEMOGLOBIN. 15.3 g/dL (14.0-18.0); LYMPHOCYTES % 26.2 % (20.0-50.0); MEAN CORPUSCULAR HEMOGLOBIN 30.9 pg (28.0-32.0); MEAN CORPUSCULAR HGB CONC 33.8 g/dL (31.0-37.0); MEAN CORPUSCULAR VOLUME 91.6 fL (80.0-94.0); MEAN PLATELET VOLUME 8.6 fl (7.4-10.4); MONOCYTES % 8.4 % (2.0-8.0); NEUTROPHILS % 62.7 % (40.0-76.0); PLATELET 270 x1000/uL (130-400); RED BLOOD CELL COUNT 4.96 mill/uL (4.7-6.1); WHITE BLOOD COUNT 7.4 x1000/uL (4.5-11.0)
[2023-02-04 07:17] LABS: CHLORIDE 109 mEq/L (98-107); INDEX HEMOLYSI 1 (1-3); INDEX ICTERIC 1 (1-4); INDEX LIPEMIC 1 (1-3); POTASSIUM 4.2 mEq/L (3.5-5.1); SODIUM 138 mEq/L (136-145)
[2023-02-04 07:24] LABS: ALANINE AMINOTRANSFERASE 20 IU/L (13-61); ALBUMIN 3.6 g/dL (3.4-5.0); ASPARTATE AMINOTRANSFERASE 13 IU/L (15-37); BILIRUBIN TOTAL 0.3 mg/dL (0.1-1.0); CALCIUM 8.7 mg/dL (8.5-10.1); CARBON DIOXIDE 28 mEq/L (21-32); CREATININE 0.6 mg/dL (0.6-1.3); GLUCOSE 101 mg/dL (70-105); PROTEIN TOTAL 8.2 g/dL (6.0-8.3); UREA NITROGEN BLOOD 11 mg/dL (7-21)
[2023-02-04] MEDS ORDERED: MORPHINE SULFATE 4 MG/ML CPJ (NOT FOR IM USE) IV ONE (08:45)
[2023-02-04] MEDS ORDERED: MORPHINE SULFATE 4 MG/ML CPJ (NOT FOR IM USE) IV SCH (08:45)
[2023-02-04] MEDS ORDERED: METHYLPREDNISOLONE SOD SUCC 1,000 MG in DEXT 5% WATER 100 ML IV ONE (09:30)
[2023-02-04] MEDS ORDERED: MORPHINE SULFATE 4 MG/ML CPJ (NOT FOR IM USE) IV NR (12:45)
[2023-02-04 14:00] VITALS: BP 109/65; PULSE 80; RESP 19; TEMP 98.7
== END 2023-02-04 14:33 | disposition short-term general hospital (02) ==
LOC: ER 06:02 → CANBEDREQ 12:55 → ER 14:33
DX: G35 Multiple sclerosis (principal)
CPT/HCPCS: 99285; 96365; 70450; 96375; 80053; 85025; 85610; 36415; 96376; J2930; J2270; J7060

== ENCOUNTER 2023-05-15 06:51 | Emergency (ER) | payer OTHER, MEDICAID ==
[~2023-05-15] VITALS: Ht 185.4 cm; Wt 110.0 kg
[2023-05-15 07:05] VITALS: O2SAT 98
[2023-05-15 08:25] LABS: BASOPHILS % 0.8 % (0.0-2.0); EOSINOPHILS % 1.9 % (0.0-5.0); HEMATOCRIT. 47.8 % (42.0-52.0); HEMOGLOBIN. 15.7 g/dL (14.0-18.0); LYMPHOCYTES % 25.3 % (20.0-50.0); MEAN CORPUSCULAR HEMOGLOBIN 30.6 pg (28.0-32.0); MEAN CORPUSCULAR HGB CONC 32.8 g/dL (31.0-37.0); MEAN CORPUSCULAR VOLUME 93.3 fL (80.0-94.0); MEAN PLATELET VOLUME 9.1 fl (7.4-10.4); PLATELET 282 x1000/uL (130-400); RED BLOOD CELL COUNT 5.12 mill/uL (4.7-6.1); RED CELL DISTRIBUTION WIDTH 13.6 % (11.6-14.6); WHITE BLOOD COUNT 5.6 x1000/uL (4.5-11.0)
[2023-05-15 08:34] LABS: PROTHROMBIN TIME 10.6 sec (9.6-11.0)
[2023-05-15 08:51] LABS: ALANINE AMINOTRANSFERASE 19 IU/L (10-49); ALBUMIN 4.5 g/dL (3.2-4.8); ASPARTATE AMINOTRANSFERASE 15 IU/L (<34); BILIRUBIN TOTAL 0.4 mg/dL (0.1-1.0); CALCIUM 9.6 mg/dL (8.7-10.4); CARBON DIOXIDE 32 mEq/L (21-32); CHLORIDE 105 mEq/L (98-107); CREATININE 0.8 mg/dL (0.6-1.3); GLUCOSE 97 mg/dL (70-105); POTASSIUM 4.2 mEq/L (3.5-5.1); SODIUM 144 mEq/L (136-145); TROPONIN I HIGH SENSITIVITY 4 ng/L (3.0-53); UREA NITROGEN BLOOD 9 mg/dL (9-23)
[2023-05-15] MEDS ORDERED: METHYLPREDNISOLONE SOD SUCC 125MG/2ML (ACT-O-VIAL) IV STA (10:10)
[2023-05-15 10:42] VITALS: BP 109/48; PULSE 74; RESP 16; TEMP 98.9
[2023-05-15] MEDS ORDERED: METHYLPREDNISOLONE SOD SUCC 1,000 MG in DEXT 5% WATER 100 ML IV NR (11:30)
== END 2023-05-15 10:53 | disposition short-term general hospital (02) ==
LOC: ER 06:51
DX: G35 Multiple sclerosis (principal); G89.29 Other chronic pain; M54.9 Dorsalgia, unspecified; F31.9 Bipolar disorder, unspecified
CPT/HCPCS: 99285; 96365; 71045; 80053; 83605; 85025; 85610; 87040; 84484; 87804 ×2; 36415; 84145; 93005; J2930; J7060

== ENCOUNTER 2023-07-22 18:06 | Emergency (ER) | payer OTHER, MEDICAID ==
[~2023-07-22] VITALS: Ht 172.7 cm; Wt 70.0 kg
[2023-07-22 18:12] VITALS: O2SAT 94
[2023-07-22] MEDS ORDERED: METHYLPREDNISOLONE SOD SUCC 40MG VIAL IV ONE (19:30)
[2023-07-22] MEDS: MORPHINE SULFATE 4 MG/ML CPJ (NOT FOR IM USE) IV STA (19:49)
[2023-07-22] MEDS: SODIUM CHLORIDE 0.9% 1,000 ML IV ONE (19:49)
[2023-07-22] MEDS: ONDANSETRON HCL 4MG/2ML INJ IV STA (19:49)
[2023-07-22] MEDS: METHYLPREDNISOLONE SOD SUCC 125MG/2ML (ACT-O-VIAL) IV NR (19:50)
[2023-07-22] MEDS ORDERED: CLINDAMYCIN 600 MG in DEXTROSE 5% WATER 50 ML IV ONE (21:30)
[2023-07-22 21:38] LABS: ALANINE AMINOTRANSFERASE 16 IU/L (10-49); ALBUMIN 4.1 g/dL (3.2-4.8); ASPARTATE AMINOTRANSFERASE 14 IU/L (<34); BILIRUBIN TOTAL 0.4 mg/dL (0.1-1.0); CALCIUM 8.7 mg/dL (8.7-10.4); CARBON DIOXIDE 28 mEq/L (21-32); CHLORIDE 109 mEq/L (98-107); CREATININE 0.7 mg/dL (0.6-1.3); GLUCOSE 100 mg/dL (70-105); POTASSIUM 3.8 mEq/L (3.5-5.1); PROTEIN TOTAL 7.3 g/dL (6.0-8.3); SODIUM 143 mEq/L (136-145); UREA NITROGEN BLOOD 9 mg/dL (9-23)
[2023-07-22 21:41] LABS: TROPONIN I HIGH SENSITIVITY < 4 ng/L (3.0-53)
[2023-07-22 21:43] LABS: BASOPHILS % 0.7 % (0.0-2.0); HEMATOCRIT. 42.6 % (42.0-52.0); HEMOGLOBIN. 13.9 g/dL (14.0-18.0); LYMPHOCYTES % 19.4 % (20.0-50.0); MEAN CORPUSCULAR HEMOGLOBIN 29.5 pg (28.0-32.0); MEAN CORPUSCULAR HGB CONC 32.6 g/dL (31.0-37.0); MEAN CORPUSCULAR VOLUME 90.6 fL (80.0-94.0); MEAN PLATELET VOLUME 8.7 fl (7.4-10.4); MONOCYTES % 7.3 % (2.0-8.0); NEUTROPHILS % 71.6 % (40.0-76.0); PLATELET 255 x1000/uL (130-400); RED BLOOD CELL COUNT 4.71 mill/uL (4.7-6.1); RED CELL DISTRIBUTION WIDTH 13.7 % (11.6-14.6); WHITE BLOOD COUNT 8.6 x1000/uL (4.5-11.0)
[2023-07-22 21:51] LABS: PARTIAL THROMBOPLASTIN TIME 27.9 sec (23.4-31.0)
[2023-07-22] MEDS: CLINDAMYCIN 600MG PREMIX 50 ML IV NR (22:53)
[2023-07-23 00:30] VITALS: BP 114/71; PULSE 74; RESP 17; TEMP 98
== END 2023-07-23 03:29 | disposition short-term general hospital (02) ==
LOC: ER 18:06 → CANBEDREQ 07-24 20:15
DX: M54.50 Low back pain, unspecified (principal); R53.1 Weakness; F31.9 Bipolar disorder, unspecified; R51.9 Headache, unspecified
CPT/HCPCS: 99285; 70450; 96365; 71045; 96375; 96361; 80053; 83880; 83690; 85025; 85610; 85730; 87040; 84484; 36415; 74176; 93005; J2930; J2405; J2270; J3490; J7030; J2920; J7060

== ENCOUNTER 2024-04-20 07:10 | Emergency (ER) | payer OTHER ==
[~2024-04-20] VITALS: Ht 175.3 cm; Wt 88.0 kg
[2024-04-20 07:15] VITALS: O2SAT 100
[2024-04-20 07:45] VITALS: TEMP 36.83628
[2024-04-20] MEDS: KETOROLAC 30MG/ML VIAL IV ONE (08:17)
[2024-04-20] MEDS: DIAZEPAM 5 MG/ML 2ML SYR IV ONE (08:17)
[2024-04-20] MEDS: LIDOCAINE 5% PATCH TOP SCH (08:18)
[2024-04-20] MEDS: MORPHINE SULFATE 4 MG/ML INJ (FOR IV/IM USE) IV ONE (08:18)
[2024-04-20 08:20] LABS: BASOPHILS % 0.7 % (0.0-2.0); EOSINOPHILS % 2.7 % (0.0-5.0); HEMATOCRIT. 44.8 % (42.0-52.0); HEMOGLOBIN. 14.5 g/dL (14.0-18.0); MEAN CORPUSCULAR HEMOGLOBIN 30.2 pg (28.0-32.0); MEAN CORPUSCULAR HGB CONC 32.4 g/dL (31.0-37.0); MEAN CORPUSCULAR VOLUME 93.3 fL (80.0-94.0); MEAN PLATELET VOLUME 8.9 fl (7.4-10.4); MONOCYTES % 10.5 % (2.0-8.0); NEUTROPHILS % 59.1 % (40.0-76.0); PLATELET 253 x1000/uL (130-400); RED CELL DISTRIBUTION WIDTH 12.8 % (11.6-14.6); WHITE BLOOD COUNT 6.5 x1000/uL (4.5-11.0)
[2024-04-20 08:31] LABS: CHLORIDE 105 mEq/L (98-107); POTASSIUM 4.2 mEq/L (3.5-5.1); SODIUM 142 mEq/L (136-145)
[2024-04-20 08:32] LABS: CALCIUM 9.3 mg/dL (8.7-10.4); CARBON DIOXIDE 28 mEq/L (21-32)
[2024-04-20 08:37] LABS: CREATININE 0.8 mg/dL (0.6-1.3); GLUCOSE 92 mg/dL (70-105); UREA NITROGEN BLOOD 9 mg/dL (9-23)
[2024-04-20 08:39] LABS: CREATINE KINASE 93 IU/L (46-171)
[2024-04-20 11:34] VITALS: BP 105/56; PULSE 67; RESP 15; O2SAT 98
== END 2024-04-20 11:49 | disposition home or self-care (01) ==
LOC: ER 07:31
DX: M54.50 Low back pain, unspecified (principal)
CPT/HCPCS: 99284; 96374; 96375; 80048; 82550; 85025; 85651; 36415; J1885; J2270

== ENCOUNTER 2024-09-29 19:50 | Emergency (ER) | payer OTHER, MEDICAID ==
[~2024-09-29] VITALS: Ht 182.9 cm; Wt 109.0 kg
[~2024-09-29 19:50] MED LIST changes: -ARIP30TA17 PO; +ARIP30TA59 PO
[2024-09-29 19:56] VITALS: TEMP 36.9; O2SAT 100
[2024-09-29] MEDS ORDERED: METHYLPREDNISOLONE 40MG/ML INJ IV ONE (20:00)
[2024-09-29 20:25] LABS: BASOPHILS % 0.8 % (0.0-2.0); EOSINOPHILS % 1.4 % (0.0-5.0); HEMATOCRIT. 43.6 % (42.0-52.0); HEMOGLOBIN. 14.4 g/dL (14.0-18.0); LYMPHOCYTES % 28.7 % (20.0-50.0); MEAN CORPUSCULAR HEMOGLOBIN 29.8 pg (28.0-32.0); MEAN CORPUSCULAR HGB CONC 33.1 g/dL (31.0-37.0); MEAN CORPUSCULAR VOLUME 89.9 fL (80.0-94.0); MEAN PLATELET VOLUME 8.6 fl (7.4-10.4); MONOCYTES % 7.8 % (2.0-8.0); NEUTROPHILS % 61.3 % (40.0-76.0); PLATELET 272 x1000/uL (130-400); RED BLOOD CELL COUNT 4.85 mill/uL (4.7-6.1); RED CELL DISTRIBUTION WIDTH 12.9 % (11.6-14.6)
[2024-09-29 20:33] LABS: CHLORIDE 104 mEq/L (98-107); SODIUM 141 mEq/L (136-145)
[2024-09-29 20:34] LABS: CARBON DIOXIDE 29 mEq/L (21-32)
[2024-09-29 20:39] LABS: CREATININE 0.9 mg/dL (0.6-1.3); GLUCOSE 95 mg/dL (70-105); UREA NITROGEN BLOOD 11 mg/dL (9-23)
[2024-09-29] MEDS: ONDANSETRON HCL 4MG/2ML INJ IV STA (20:45)
[2024-09-29] MEDS: MORPHINE SULFATE 4 MG/ML INJ (FOR IV/IM USE) IV STA (20:46)
[2024-09-29] MEDS: METHYLPREDNISOLONE SOD SUCC 125MG/2ML (ACT-O-VIAL) IV NR (21:00)
[2024-09-30 00:52] LABS: CLARITY URINE CLEAR (CLEAR); COLOR URINE YELLOW (YELLOW); GLUCOSE URINE NEGATIVE (NEGATIVE); KETONES URINE TRACE (NEGATIVE); LEUKOCYTE ESTERASE URINE NEGATIVE (NEGATIVE); NITRITE URINE NEGATIVE (NEGATIVE); OCCULT BLOOD URINE NEGATIVE (NEGATIVE); PROTEIN URINE TRACE (NEGATIVE); SPECIFIC GRAVITY URINE 1.037 (1.005-1.030)
[2024-09-30 04:00] VITALS: BP 120/69; PULSE 58; RESP 16; O2SAT 100
[2024-09-30 04:46] LABS: BACTERIA URINE NONE SEEN; RBC URINE 0-2 /hpf (0-2); SQUAMOUS EPITHELIAL CELL URINE FEW /lpf (RARE/1+); WBC URINE 0-2 /hpf (0-2)
== END 2024-09-30 04:14 | disposition short-term general hospital (02) ==
LOC: ER 20:20
DX: M54.50 Low back pain, unspecified (principal); G35 Multiple sclerosis; M47.816 Spondylosis without myelopathy or radiculopathy, lumbar region; Z79.899 Other long term (current) drug therapy
CPT/HCPCS: 99285; 72148; 96374; 96375; 80048; 85025; 36415; 81003; J2919; J2405; J2270